=== PATIENT | male | born 1960 | race Caucasian/White ===

== ENCOUNTER 2017-12-27 20:29 | Emergency (ER) | payer OTHER ==
[2017-12-27] MEDS ORDERED: BUPIVACAINE 0.25% (MPF) 10 ML 10 ML VIAL INJ (22:00)
[2017-12-27] MEDS: BUPIVACAINE 0.25% (MPF) 30 ML INJ INJ (22:03)
[2017-12-27] MEDS: HYDROCODONE/APAP (5/325) TAB PO (23:07)
[2017-12-27] MEDS: LIDOCAINE 5% PATCH TD (23:40)
== END 2017-12-27 23:44 | disposition home or self-care (01) ==
LOC: FTE 20:29
DX: M54.2 Cervicalgia (principal); R40.2412 Glasgow coma scale score 13-15, at arrival to emergency department; Z87.891 Personal history of nicotine dependence
CPT/HCPCS: 20552; 99284-25

== ENCOUNTER 2018-04-28 12:10 | Emergency (ER) | payer OTHER ==
[2018-04-28] MEDS: IBUPROFEN 800 MG TAB PO (13:58)
== END 2018-04-28 15:50 | disposition home or self-care (01) ==
LOC: FTE 12:10
DX: M79.641 Pain in right hand (principal)
CPT/HCPCS: 29125; 73130-RT; 99283-25